=== PATIENT | female | born 1940 | race Caucasian/White ===

== ENCOUNTER 2021-09-20 13:46 | Emergency (ER) | payer MEDICARE ==
[2021-09-20 14:45] LABS: #Basophils 0.1 thou/uL (0.0-0.2); #Eosinphils 0.3 thou/uL (0.0-0.7); #Lymphocytes 2.1 thou/uL (1.20-3.40); #Monocytes 0.7 thou/uL (0.11-0.59); #Neutrophils 3.8 thou/uL (1.40-6.50); %Basophils 1.3 % (0.0-1.0); %Eosinophils 3.6 % (0.0-10.0); %Lymphocytes 30.3 % (21.0-51.0); %Monocytes 10.1 % (0.0-10.0); %Neutrophils 54.6 % (42.0-75.0); Hemoglobin 13.7 g/dL (12.0-16.0); Mean Corpuscular Hemoglobin 34.9 pg (27.0-31.0); Mean Platelet Volume 7.7 fL (7.4-10.4); Platelet Count 238 thou/uL (130-400); RBC Distribution Width 11.3 % (11.5-14.5); Red Blood Cell (RBC) Count 3.94 mill/uL (4.20-5.40)
[2021-09-20 15:10] LABS: ALT (SGPT) 13 U/L (8-55); AST (SGOT) 16 U/L (5-34); Alkaline Phosphatase 60 U/L (40-110); Anion Gap 14 mmol/L (10-20); BUN (Urea Nitrogen) 10 mg/dL (9.8-20.1); Bilirubin, Total 0.3 mg/dL (0.2-1.2); Calc. Creatinine Clearance 0 mL/min (70-130); Calcium 9.2 mg/dL (7.8-10.44); Carbon Dioxide 25 mmol/L (23-31); Chloride 107 mmol/L (98-107); Globulin 2.5 g/dL (2.4-3.5); Glucose 100 mg/dL (83-110); Potassium 3.5 mmol/L (3.5-5.1); Protein, Total 6.5 g/dL (5.8-8.1); Sodium 142 mmol/L (136-145)
[2021-09-20] MEDS ORDERED: Morphine 4 MG/ML VIAL ONE (17:09)
[2021-09-20] MEDS ORDERED: Ondansetron PF 4 MG/2 ML Vial ONE (17:09)
== END 2021-09-20 17:26 | disposition home or self-care (01) ==
LOC: ERS 13:46
DX: S09.90XA Unspecified injury of head, initial encounter (principal); S62.172A Displaced fracture of trapezium [larger multangular], left wrist, initial encounter for closed fracture; K58.9 Irritable bowel syndrome, unspecified; E78.5 Hyperlipidemia, unspecified; W19.XXXA Unspecified fall, initial encounter
CPT/HCPCS: 36415; 70450; 70486; 71045; 72125; 80053; 84484; 85025; 96374; 96375; J2270; J2405

== ENCOUNTER 2023-01-17 10:50 | Day surgery (SDC) | payer MEDICARE, OTHER ==
[~2023-01-17 10:50] MED LIST: Vedolizumab 300 MG in Sodium Chloride 0.9% 250 ML 250 ML IVPB SCH
[2023-01-17 11:19] VITALS: BP 137/81; TEMP 98.1
== END 2023-01-17 12:30 | disposition home or self-care (01) ==
LOC: ONC/OP 10:50
PROVIDERS: ATTEND Internal Medicine Gastroenterology
DX: K50.00 Crohn's disease of small intestine without complications (principal); Z88.4 Allergy status to anesthetic agent
CPT/HCPCS: 96413; J3380; J7050

== ENCOUNTER → 2023-02-14 | Day surgery (SDC) | payer MEDICARE, OTHER ==
[~2023-02-14] MED LIST changes: +EPINEPHrine 1 MG/ML AMP IM PRN; +Sodium Chloride 0.9% 500 ML IV PRN; +diphenhydrAMINE 50 MG/ML VIAL IVP PRN
[2023-02-14 11:56] VITALS: BP 160/91; TEMP 98.5
== END | disposition home or self-care (01) ==
LOC: ONC/OP 11:06
PROVIDERS: ATTEND Internal Medicine Gastroenterology
DX: K50.00 Crohn's disease of small intestine without complications (principal); Z88.4 Allergy status to anesthetic agent
CPT/HCPCS: 96413; J3380; J7050

== ENCOUNTER → 2023-03-16 | Day surgery (SDC) | payer MEDICARE ==
[2023-03-16 12:07] VITALS: BP 137/79; TEMP 98.5
== END | disposition home or self-care (01) ==
LOC: ONC/OP 11:14
PROVIDERS: ATTEND Internal Medicine Gastroenterology
DX: K50.00 Crohn's disease of small intestine without complications (principal); Z88.4 Allergy status to anesthetic agent
CPT/HCPCS: 96413; J3380; J7050

== ENCOUNTER 2023-04-25 11:13 | Day surgery (SDC) | payer MEDICARE ==
[2023-04-25] MEDS ORDERED: EPINEPHrine 1 MG/ML AMP IM PRN (11:31)
[2023-04-25] MEDS ORDERED: diphenhydrAMINE 50 MG/ML VIAL IVP PRN (11:31)
[2023-04-25] MEDS ORDERED: Sodium Chloride 0.9% 500 ML IV PRN (11:32)
[2023-04-25] MEDS ORDERED: Vedolizumab 300 MG in Sodium Chloride 0.9% 250 ML 250 ML IVPB SCH (11:45)
[2023-04-25 12:57] VITALS: BP 157/74; TEMP 98.5
== END 2023-04-25 13:10 | disposition home or self-care (01) ==
LOC: ONC/OP 11:13
PROVIDERS: ATTEND Internal Medicine Gastroenterology
DX: K50.00 Crohn's disease of small intestine without complications (principal); Z88.4 Allergy status to anesthetic agent
CPT/HCPCS: 96413; J3380; J7050

== ENCOUNTER 2023-06-25 10:58 | Day surgery (SDC) | payer MEDICARE ==
[2023-06-25] MEDS ORDERED: Vedolizumab 300 MG in Sodium Chloride 0.9% 250 ML 250 ML IVPB SCH (11:15)
[2023-06-25 12:00] VITALS: BP 144/76; TEMP 98.4
== END 2023-06-25 12:31 | disposition home or self-care (01) ==
LOC: ONC/OP 10:58
PROVIDERS: ATTEND Internal Medicine Gastroenterology
DX: K50.00 Crohn's disease of small intestine without complications (principal); Z88.4 Allergy status to anesthetic agent
CPT/HCPCS: 96413; J3380; J7050

== ENCOUNTER 2023-07-23 11:45 | Day surgery (SDC) | payer MEDICARE ==
[~2023-07-23 11:45] MED LIST changes: -EPINEPHrine 1 MG/ML AMP IM PRN; -Sodium Chloride 0.9% 500 ML IV PRN; -diphenhydrAMINE 50 MG/ML VIAL IVP PRN
[2023-07-23 12:17] VITALS: BP 136/82; TEMP 98.5
== END 2023-07-23 13:11 | disposition home or self-care (01) ==
LOC: ONC/OP 11:45
PROVIDERS: ATTEND Internal Medicine Gastroenterology
DX: K50.00 Crohn's disease of small intestine without complications (principal); K51.90 Ulcerative colitis, unspecified, without complications; Z88.4 Allergy status to anesthetic agent
CPT/HCPCS: 96413; J3380; J7050

== ENCOUNTER 2023-08-24 11:17 | Day surgery (SDC) | payer MEDICARE ==
[2023-08-24 12:33] VITALS: BP 138/74; TEMP 97.9
== END 2023-08-24 13:16 | disposition home or self-care (01) ==
LOC: ONC/OP 11:17
PROVIDERS: ATTEND Internal Medicine Gastroenterology
DX: K50.00 Crohn's disease of small intestine without complications (principal); Z88.4 Allergy status to anesthetic agent
CPT/HCPCS: 96365; J3380; J7050

== ENCOUNTER 2023-10-03 10:59 | Day surgery (SDC) | payer MEDICARE ==
[~2023-10-03 10:59] MED LIST changes: -Vedolizumab 300 MG in Sodium Chloride 0.9% 250 ML 250 ML IVPB SCH; +Vedolizumab 300 MG, Sterile Water 5 ML in Sodium Chloride 0.9% 250 ML 250 ML IVPB SCH
[2023-10-03 11:31] VITALS: BP 148/92; TEMP 97.7
[2023-10-03] MEDS ORDERED: FLU VACC QS2023(65UP)/MF59C/PF 60 MCG/0.5 ML SYRINGE IM ONE (11:45)
== END 2023-10-03 12:57 | disposition home or self-care (01) ==
LOC: ONC/OP 10:59
PROVIDERS: ATTEND Internal Medicine Gastroenterology
DX: K51.90 Ulcerative colitis, unspecified, without complications (principal); K50.00 Crohn's disease of small intestine without complications; Z88.4 Allergy status to anesthetic agent
CPT/HCPCS: 96413; J3380; J7050

== ENCOUNTER 2023-11-29 11:22 | Day surgery (SDC) | payer MEDICARE ==
[~2023-11-29 11:22] MED LIST changes: +Vedolizumab 300 MG in Sodium Chloride 0.9% 250 ML 250 ML IVPB SCH; -Vedolizumab 300 MG, Sterile Water 5 ML in Sodium Chloride 0.9% 250 ML 250 ML IVPB SCH
[2023-11-29 12:59] VITALS: BP 139/79; TEMP 98.1
== END 2023-11-29 13:01 | disposition home or self-care (01) ==
LOC: ONC/OP 11:22
PROVIDERS: ATTEND Internal Medicine Gastroenterology
DX: K50.00 Crohn's disease of small intestine without complications (principal); K51.90 Ulcerative colitis, unspecified, without complications; Z88.4 Allergy status to anesthetic agent
CPT/HCPCS: 96365; J3380; J7050

== ENCOUNTER 2023-12-27 09:48 | Day surgery (SDC) | payer MEDICARE ==
[2023-12-27 10:54] VITALS: BP 120/76; TEMP 98.2
[2023-12-27] MEDS: Vedolizumab 300 MG in Sodium Chloride 0.9% 250 ML 250 ML IVPB SCH (11:00)
== END 2023-12-27 11:52 | disposition home or self-care (01) ==
LOC: ONC/OP 09:48
PROVIDERS: ATTEND Internal Medicine Gastroenterology
DX: K50.00 Crohn's disease of small intestine without complications (principal); Z88.7 Allergy status to serum and vaccine
CPT/HCPCS: 96413; J3380; J7050

== ENCOUNTER 2024-01-24 12:53 | Day surgery (SDC) | payer MEDICARE ==
[2024-01-24] MEDS: Vedolizumab 300 MG in Sodium Chloride 0.9% 250 ML 250 ML IVPB SCH (13:46)
[2024-01-24 14:42] VITALS: BP 136/90; TEMP 98.3
== END 2024-01-24 14:42 | disposition home or self-care (01) ==
LOC: ONC/OP 12:53
PROVIDERS: ATTEND Internal Medicine Gastroenterology
DX: K50.00 Crohn's disease of small intestine without complications (principal); Z88.6 Allergy status to analgesic agent
CPT/HCPCS: 96413; J3380; J7050

== ENCOUNTER 2024-03-11 15:17 | Observation (INO) | payer MEDICARE ==
[2024-03-11 16:16] LABS: #Basophils 0.06 10x3/uL (0.0-0.2); %Basophils 0.9 % (0.0-1.0); %Eosinophils 6.4 % (0.0-10.0); %Lymphocytes 36.5 % (21.0-51.0); %Monocytes 9.2 % (0.0-10.0); %Neutrophils 46.8 % (42.0-75.0); Hematocrit 37.5 % (36.0-47.0); Hemoglobin 12.4 g/dL (12.0-16.0); Mean Corpuscular HGB CONC 33.1 g/dL (32.0-36.0); Mean Corpuscular Hemoglobin 33.2 pg (27.0-31.0); Mean Corpuscular Volume 100.3 fL (78.0-98.0); Mean Platelet Volume 10.6 fL (7.4-10.4); Platelet Count 254 10x3/uL (130-400); RBC Distribution Width 12.5 % (11.5-14.5); Red Blood Cell (RBC) Count 3.74 mill/uL (4.20-5.40)
[2024-03-11 16:57] LABS: ALT (SGPT) 16 U/L (8-55); AST (SGOT) 21 U/L (5-34); Albumin 3.7 g/dL (3.4-4.8); Alkaline Phosphatase 59 U/L (40-110); Anion Gap 17 mmol/L (10-20); BUN (Urea Nitrogen) 10 mg/dL (9.8-20.1); Bilirubin, Total 0.3 mg/dL (0.2-1.2); Calc. Creatinine Clearance 0 mL/min (70-130); Calcium 9.6 mg/dL (7.8-10.44); Carbon Dioxide 23 mmol/L (23-31); Chloride 105 mmol/L (98-107); Estimated GFR 74; Glucose 129 mg/dL (83-110); Potassium 3.5 mmol/L (3.5-5.1); Protein, Total 6.7 g/dL (5.8-8.1); Sodium 141 mmol/L (136-145)
[2024-03-11 17:00] LABS: Troponin I Less than 0.010 ng/mL (< 0.028)
[2024-03-11 17:04] LABS: Bacteria/HPF None Seen HPF (None Seen); Bilirubin Negative (Negative); Blood, Urine Negative (Negative); CAUTI Indications for Culture Dysuria,urgency,freq; Clarity Clear (Clear); Glucose, Urine (Dipstick) Normal (Negative); Ketone, Urine Negative (Negative); Leukocyte Negative Leu/uL (Negative); Nitrite Negative (Negative); Protein, Urine (Dipstick) Negative (Neg-Trace); RBC/HPF 0-3 HPF (0-3); Specific Gravity, Urine 1.005 (1.002-1.036); Squamous Epithelial None Seen HPF (0-3); Urobilinogen Normal mg/dL (Less than 2); WBC/HPF 0-3 HPF (0-3)
[2024-03-11 17:06] LABS: Urine Culture Reflex No No
[2024-03-11] MEDS ORDERED: Ondansetron PF 4 MG/2 ML Vial IVP PRN (19:16)
[2024-03-11] MEDS ORDERED: Ondansetron ODT 4 MG TAB PO PRN (19:16)
[2024-03-11 19:39] LABS: Magnesium 2.1 mg/dL (1.6-2.6)
[2024-03-11 22:26] LABS: Troponin I Less than 0.010 ng/mL (< 0.028)
[2024-03-11 22:32] VITALS: BMI 24.3
[2024-03-11] MEDS: clonazePAM 0.5 MG TAB PO PRN (23:30)
[2024-03-11] MEDS: Metoprolol Tartrate 25 MG TAB PO SCH (23:30)
[2024-03-11] MEDS: Acetaminophen 325 MG TAB PO PRN (23:31)
[2024-03-11] MEDS: Potassium Chloride 20 MEQ TAB PO SCH (23:40)
[2024-03-12 00:39] LABS: Troponin I Less than 0.010 ng/mL (< 0.028)
[2024-03-12] MEDS: Potassium Chloride 20 MEQ TAB PO SCH (01:41)
[2024-03-12 04:54] LABS: #Basophils 0.07 10x3/uL (0.0-0.2); %Eosinophils 6.7 % (0.0-10.0); %Lymphocytes 37.4 % (21.0-51.0); %Monocytes 10.9 % (0.0-10.0); %Neutrophils 43.9 % (42.0-75.0); Hematocrit 34.6 % (36.0-47.0); Hemoglobin 11.4 g/dL (12.0-16.0); Mean Corpuscular HGB CONC 32.9 g/dL (32.0-36.0); Mean Corpuscular Hemoglobin 33.6 pg (27.0-31.0); Mean Corpuscular Volume 102.1 fL (78.0-98.0); Mean Platelet Volume 10.3 fL (7.4-10.4); Platelet Count 218 10x3/uL (130-400); RBC Distribution Width 12.5 % (11.5-14.5); Red Blood Cell (RBC) Count 3.39 mill/uL (4.20-5.40)
[2024-03-12 05:34] LABS: Anion Gap 12 mmol/L (10-20); BUN (Urea Nitrogen) 12 mg/dL (9.8-20.1); Calc. Creatinine Clearance 60 mL/min (70-130); Calcium 8.9 mg/dL (7.8-10.44); Carbon Dioxide 24 mmol/L (23-31); Chloride 109 mmol/L (98-107); Estimated GFR 76; Glucose 89 mg/dL (83-110); Potassium 3.9 mmol/L (3.5-5.1); Sodium 141 mmol/L (136-145)
[2024-03-12] MEDS: DULoxetine 30 MG CAP PO SCH (09:22)
[2024-03-12] MEDS: Latanoprost 0.005% Ophth Soln 2.5 ml Bottle EA EYE SCH (09:22)
[2024-03-12] MEDS: Enoxaparin 40 MG (0.4 mL) SYRINGE SC SCH (09:22)
[2024-03-12] MEDS: Losartan 25 MG TAB PO SCH (09:23)
[2024-03-12] MEDS: Metoprolol Tartrate 25 MG TAB PO SCH (09:23)
[2024-03-12] MEDS: Rosuvastatin 5 MG TAB PO SCH (09:23)
[2024-03-12] MEDS: buPROPion 75 MG TAB PO SCH (09:24)
[2024-03-12 16:57] VITALS: BP 119/74; TEMP 98.1
[2024-03-12] MEDS ORDERED: Latanoprost 0.005% Ophth Soln 2.5 ml Bottle EA EYE SCH (21:00)
== END 2024-03-12 16:30 | disposition home or self-care (01) ==
LOC: ERS 15:17 → 2SW 19:08
PROVIDERS: ADMIT Physician Assistant; ATTEND Internal Medicine
PROC: B246ZZZ Ultrasonography of Right and Left Heart (ICD-10-PCS; principal; 2024-03-11)
DX: R00.0 Tachycardia, unspecified (principal); K50.80 Crohn's disease of both small and large intestine without complications; I49.3 Ventricular premature depolarization; E78.5 Hyperlipidemia, unspecified; F41.9 Anxiety disorder, unspecified; F32.A Depression, unspecified; I10 Essential (primary) hypertension; Z79.899 Other long term (current) drug therapy; Z91.041 Radiographic dye allergy status
CPT/HCPCS: 36415; 71045; 80048; 80053; 81001; 83735; 84443; 84484; 85025; 85379; 93005; 93010; 93306; 96372; G0378; J1650

== ENCOUNTER 2024-04-04 09:56 | Day surgery (SDC) | payer MEDICARE ==
[2024-04-04 10:48] VITALS: BP 136/82; TEMP 98
[2024-04-04] MEDS: Vedolizumab 300 MG in Sodium Chloride 0.9% 250 ML 250 ML IVPB SCH (11:00)
== END 2024-04-04 11:51 | disposition home or self-care (01) ==
LOC: ONC/OP 09:56
PROVIDERS: ATTEND Internal Medicine Gastroenterology
DX: K50.00 Crohn's disease of small intestine without complications (principal); Z88.6 Allergy status to analgesic agent
CPT/HCPCS: 96413; J3380; J7050

== ENCOUNTER 2024-05-05 11:49 | Day surgery (SDC) | payer MEDICARE ==
[2024-05-05 12:34] VITALS: BP 136/72; TEMP 98.4
== END 2024-05-05 13:50 | disposition home or self-care (01) ==
LOC: ONC/OP 11:49
PROVIDERS: ATTEND Internal Medicine Gastroenterology
DX: K50.00 Crohn's disease of small intestine without complications (principal); Z88.6 Allergy status to analgesic agent
CPT/HCPCS: 96413; J3380; J7050

== ENCOUNTER 2024-06-03 10:55 | Day surgery (SDC) | payer MEDICARE ==
[2024-06-03 12:08] VITALS: BP 137/80; TEMP 98.2
[2024-06-03] MEDS: Vedolizumab 300 MG in Sodium Chloride 0.9% 250 ML 250 ML IVPB SCH (12:16)
== END 2024-06-03 13:37 | disposition home or self-care (01) ==
LOC: ONC/OP 10:55
PROVIDERS: ATTEND Internal Medicine Gastroenterology
DX: K50.00 Crohn's disease of small intestine without complications (principal); Z88.6 Allergy status to analgesic agent; Z88.4 Allergy status to anesthetic agent
CPT/HCPCS: 96365; J3380; J7050

== ENCOUNTER 2024-07-29 10:53 | Day surgery (SDC) | payer MEDICARE ==
[2024-07-29] MEDS: Vedolizumab 300 MG in Sodium Chloride 0.9% 250 ML 250 ML IVPB SCH (11:55)
[2024-07-29 12:04] VITALS: BP 134/82; TEMP 98.1
== END 2024-07-29 12:43 | disposition home or self-care (01) ==
LOC: ONC/OP 10:53
PROVIDERS: ATTEND Internal Medicine Gastroenterology
DX: K50.00 Crohn's disease of small intestine without complications (principal); Z88.6 Allergy status to analgesic agent; Z88.4 Allergy status to anesthetic agent
CPT/HCPCS: 96413; J3380; J7050

== ENCOUNTER 2024-07-30 12:18 | Outpatient (CLI) | payer MEDICARE ==
[2024-07-30 14:57] LABS: #Basophils 0.09 10x3/uL (0.0-0.2); %Basophils 1.3 % (0.0-1.0); %Eosinophils 2.4 % (0.0-10.0); %Lymphocytes 35.6 % (21.0-51.0); %Monocytes 8.5 % (0.0-10.0); %Neutrophils 51.9 % (42.0-75.0); Hematocrit 42.4 % (36.0-47.0); Hemoglobin 13.6 g/dL (12.0-16.0); Mean Corpuscular HGB CONC 32.1 g/dL (32.0-36.0); Mean Corpuscular Hemoglobin 32.7 pg (27.0-31.0); Mean Corpuscular Volume 101.9 fL (78.0-98.0); Mean Platelet Volume 10.3 fL (7.4-10.4); Platelet Count 242 10x3/uL (130-400); RBC Distribution Width 12.8 % (11.5-14.5); Red Blood Cell (RBC) Count 4.16 mill/uL (4.20-5.40)
[2024-07-30 15:04] LABS: Bilirubin Negative (Negative); Blood, Urine Negative (Negative); Clarity Clear (Clear); Glucose, Urine (Dipstick) Normal (Negative); Ketone, Urine Negative (Negative); Leukocyte Negative Leu/uL (Negative); Nitrite Negative (Negative); Protein, Urine (Dipstick) Negative (Neg-Trace); Urobilinogen Normal mg/dL (Less than 2)
[2024-07-30 15:17] LABS: Prothrombin Time 13.3 sec (12.0-14.7)
[2024-07-30 15:18] LABS: PTT 28.6 sec (22.9-36.1)
[2024-07-30 15:19] LABS: ALT (SGPT) 14 U/L (8-55); AST (SGOT) 19 U/L (5-34); Alkaline Phosphatase 65 U/L (40-110); Anion Gap 12 mmol/L (10-20); BUN (Urea Nitrogen) 12 mg/dL (9.8-20.1); Bilirubin, Total 0.4 mg/dL (0.2-1.2); Calc. Creatinine Clearance 0 mL/min (70-130); Calcium 9.5 mg/dL (7.8-10.44); Carbon Dioxide 27 mmol/L (23-31); Chloride 106 mmol/L (98-107); Estimated GFR 68; Glucose 87 mg/dL (83-110); Potassium 3.9 mmol/L (3.5-5.1); Sodium 141 mmol/L (136-145)
== END 2024-07-30 12:19 | disposition home or self-care (01) ==
LOC: LABBT 12:18
PROVIDERS: ATTEND Internal Medicine Cardiovascular Disease
DX: Z01.812 Encounter for preprocedural laboratory examination (principal); I48.0 Paroxysmal atrial fibrillation; I49.5 Sick sinus syndrome; K92.2 Gastrointestinal hemorrhage, unspecified; Z79.01 Long term (current) use of anticoagulants
CPT/HCPCS: 80053; 81003; 85025; 85610; 85730

== ENCOUNTER 2024-08-26 11:03 | Day surgery (SDC) | payer MEDICARE ==
[2024-08-26 11:22] VITALS: BP 146/77; TEMP 98.2
[2024-08-26] MEDS: Vedolizumab 300 MG in Sodium Chloride 0.9% 250 ML 250 ML IVPB SCH (12:01)
[2024-08-26] MEDS ORDERED: FLU (Fluad Triv) TS24-25 (65UP)/MF59C/PF 45 MCG/0.5 ML Syringe IM ONE (14:00)
== END 2024-08-26 13:00 | disposition home or self-care (01) ==
LOC: ONC/OP 11:03
PROVIDERS: ATTEND Internal Medicine Gastroenterology
DX: K50.00 Crohn's disease of small intestine without complications (principal); Z88.6 Allergy status to analgesic agent; Z88.4 Allergy status to anesthetic agent
CPT/HCPCS: 96413; J3380; J7050

== ENCOUNTER 2024-09-08 10:32 | Outpatient (CLI) | payer MEDICARE ==
[2024-09-08 12:05] LABS: #Basophils 0.08 10x3/uL (0.0-0.2); %Basophils 1.2 % (0.0-1.0); %Lymphocytes 25.2 % (21.0-51.0); %Monocytes 7.6 % (0.0-10.0); %Neutrophils 63.7 % (42.0-75.0); Hematocrit 41.2 % (36.0-47.0); Hemoglobin 13.8 g/dL (12.0-16.0); Mean Corpuscular HGB CONC 33.5 g/dL (32.0-36.0); Mean Corpuscular Hemoglobin 33.2 pg (27.0-31.0); Mean Platelet Volume 10.2 fL (7.4-10.4); Platelet Count 239 10x3/uL (130-400); RBC Distribution Width 13.1 % (11.5-14.5); Red Blood Cell (RBC) Count 4.16 mill/uL (4.20-5.40)
[2024-09-08 12:19] LABS: INR-International Normal Ratio 1.2; PTT 34.9 sec (22.9-36.1)
[2024-09-08 12:27] LABS: Anion Gap 13 mmol/L (10-20); BUN (Urea Nitrogen) 9 mg/dL (9.8-20.1); Calc. Creatinine Clearance 0 mL/min (70-130); Calcium 9.3 mg/dL (7.8-10.44); Carbon Dioxide 25 mmol/L (23-31); Chloride 107 mmol/L (98-107); Estimated GFR 72; Glucose 89 mg/dL (83-110); Potassium 3.8 mmol/L (3.5-5.1); Sodium 141 mmol/L (136-145)
== END 2024-09-08 10:33 | disposition home or self-care (01) ==
LOC: LABBT 10:32
PROVIDERS: ATTEND Internal Medicine Cardiovascular Disease
DX: Z01.812 Encounter for preprocedural laboratory examination (principal); I48.0 Paroxysmal atrial fibrillation
CPT/HCPCS: 80048; 85025; 85610; 85730

== ENCOUNTER 2024-09-10 06:23 | Day surgery (SDC) | payer MEDICARE ==
[2024-09-08 10:59] VITALS: BMI 24.2
[2024-09-10] MEDS ORDERED: PROPOFOL 200 MG/20 ML VIAL ONE (07:37)
[2024-09-10] MEDS ORDERED: Lidocaine 1% PF 5 ML VIAL ONE (07:37)
== END 2024-09-10 08:52 | disposition home or self-care (01) ==
LOC: SDC 06:23
PROVIDERS: ATTEND Internal Medicine Cardiovascular Disease
PROC: B24BZZ4 Ultrasonography of Heart with Aorta, Transesophageal (ICD-10-PCS; principal; 2024-09-10)
DX: I48.0 Paroxysmal atrial fibrillation (principal); I10 Essential (primary) hypertension; I49.5 Sick sinus syndrome; E78.5 Hyperlipidemia, unspecified; F41.9 Anxiety disorder, unspecified; F32.A Depression, unspecified; K92.2 Gastrointestinal hemorrhage, unspecified; K50.90 Crohn's disease, unspecified, without complications; Z90.710 Acquired absence of both cervix and uterus; Z90.49 Acquired absence of other specified parts of digestive tract; Z85.828 Personal history of other malignant neoplasm of skin; Z88.4 Allergy status to anesthetic agent; Z79.01 Long term (current) use of anticoagulants; Z79.899 Other long term (current) drug therapy
CPT/HCPCS: 93312; J2704

== ENCOUNTER 2024-09-25 11:34 | Day surgery (SDC) | payer MEDICARE ==
[2024-09-25] MEDS: Vedolizumab 300 MG in Sodium Chloride 0.9% 250 ML 250 ML IVPB SCH (12:27)
[2024-09-25 13:24] VITALS: BP 133/65; TEMP 98.1
== END 2024-09-25 13:29 | disposition home or self-care (01) ==
LOC: ONC/OP 11:34
PROVIDERS: ATTEND Internal Medicine Gastroenterology
DX: K50.00 Crohn's disease of small intestine without complications (principal); Z88.4 Allergy status to anesthetic agent; Z88.6 Allergy status to analgesic agent
CPT/HCPCS: 96413; J3380; J7050

== ENCOUNTER 2024-11-07 13:09 | Day surgery (SDC) | payer MEDICARE ==
[2024-11-07] MEDS: Vedolizumab 300 MG in Sodium Chloride 0.9% 250 ML 250 ML IVPB SCH (14:15)
[2024-11-07 14:48] VITALS: BP 121/71; TEMP 98.3
== END 2024-11-07 15:06 | disposition home or self-care (01) ==
LOC: ONC/OP 13:09
PROVIDERS: ATTEND Internal Medicine Gastroenterology
DX: K50.00 Crohn's disease of small intestine without complications (principal); Z88.4 Allergy status to anesthetic agent
CPT/HCPCS: 96413; J3380; J7050